=== PATIENT | female | born 1995 | race Hispanic/Latino ===

== ENCOUNTER 2023-04-26 07:50 | Emergency (ER) | payer BC, SELFPAY ==
[2023-04-26 08:40] LABS: #Monocytes 1.1 10x3/uL (0.0-1.1); #Neutrophils 10.6 10x3/uL (1.5-8.4); %Basophils 0.2 % (0.0-2.0); %Eosinophils 0.3 % (0.0-6.0); %Lymphocytes 2.2 % (18.0-47.0); %Monocytes 8.9 % (0.0-10.0); %Neutrophils 87.2 % (40.0-75.0); Hematocrit 33.4 % (34.9-44.5); Hemoglobin 11.2 g/dL (12.0-15.5); Mean Corpuscular HGB CONC 33.5 g/dL (32.0-36.0); Mean Corpuscular Hemoglobin 27.3 pg (27.0-33.0); Mean Corpuscular Volume 81.3 fl (81.6-98.3); Mean Platelet Volume 10.5 fl (7.4-10.4); Platelet Count 215 10x3/uL (150-450); RBC Distribution Width 13.9 % (11.5-14.5); Red Blood Cell (RBC) Count 4.11 10x6/uL (3.90-5.03); White Blood Cell (WBC) Count 12.1 10x3/uL (3.5-10.5)
[2023-04-26] MEDS ORDERED: Acetaminophen 325 MG TAB ONE (08:45)
[2023-04-26 09:02] LABS: ALT (SGPT) 55 U/L (8-55); AST (SGOT) 50 U/L (5-34); Albumin 3.4 g/dL (3.5-5.0); Alkaline Phosphatase 62 U/L (40-110); Anion Gap 13 mmol/L (10-20); BUN (Urea Nitrogen) 4 mg/dL (7.0-18.7); Bilirubin, Total 0.5 mg/dL (0.2-1.2); Calc. Creatinine Clearance 0 mL/min (70-130); Calcium 8.7 mg/dL (7.8-10.44); Carbon Dioxide 21 mmol/L (22-29); Chloride 104 mmol/L (98-107); Estimated GFR 125; Globulin 3.1 g/dL (2.4-3.5); Glucose 108 mg/dL (70-105); Magnesium 1.4 mg/dL (1.6-2.6); Potassium 3.9 mmol/L (3.5-5.1); Protein, Total 6.5 g/dL (6.0-8.3); Sodium 134 mmol/L (136-145)
[2023-04-26] MEDS ORDERED: Magnesium Oxide 400 MG TAB PO SCH (10:00)
[2023-04-26 11:08] LABS: SARS-CoV-2 NAA Rapid Test DETECTED (NotDetected)
[2023-04-26 11:15] LABS: Bilirubin Neg (Negative); Blood, Urine 10 (Negative); Glucose, Urine (Dipstick) Normal (Negative); Ketone, Urine 50 mg/dL (Negative); Leukocyte 500 (Negative); Nitrite Negative (Negative); Protein, Urine (Dipstick) 30 mg/dl (Neg-Trace); Urobilinogen Normal mg/dL (Less than 2)
[2023-04-26 11:23] LABS: Clarity Slightly Cloudy (Clear)
[2023-04-26 11:30] LABS: CAUTI Indications for Culture Pelvic or flank pain; Trichomonas/HPF 2+ HPF (None Seen); WBC/HPF Greater than 50 HPF (0-3)
[2023-04-26 11:31] LABS: Bacteria/HPF 1+ HPF (None Seen); RBC/HPF 0-3 HPF (0-3)
[2023-04-26 11:32] LABS: Urine Culture Reflex Yes Yes
== END 2023-04-26 11:25 | disposition home or self-care (01) ==
LOC: CSHERS 07:50
DX: O98.512 Other viral diseases complicating pregnancy, second trimester (principal); U07.1 COVID-19; O16.2 Unspecified maternal hypertension, second trimester; Z3A.23 23 weeks gestation of pregnancy
CPT/HCPCS: 80053; 81001; 83735; 85025; 87086; 96360; 96361

== ENCOUNTER 2023-07-20 10:08 | Inpatient (IN) | payer MEDICAID, OTHER ==
[2023-07-20] MEDS ORDERED: Bicitra 30 ML UDCUP PO PRN (10:43)
[2023-07-20] MEDS ORDERED: Ondansetron PF 4 MG/2 ML Vial IVP PRN ×4 (10:43→15:13)
[2023-07-20] MEDS ORDERED: Promethazine HCl 25 MG/ML VIAL IM PRN ×2 (10:43→10:52)
[2023-07-20] MEDS ORDERED: hydrALAZINE 20 MG/ML VIAL SLOW IVP PRN ×2 (10:43→15:13)
[2023-07-20] MEDS ORDERED: Diphenoxylate HCl/Atropine Tablet PO PRN (10:43)
[2023-07-20] MEDS ORDERED: Misoprostol 200 MCG TAB PR PRN (10:43)
[2023-07-20] MEDS ORDERED: Famotidine/PF 20 mg/2ml Vial SLOW IVP PRN (10:43)
[2023-07-20] MEDS ORDERED: Carboprost 250 MCG/ML AMP IM PRN (10:43)
[2023-07-20] MEDS ORDERED: Tranexamic Acid 1,000 MG/10 ML VIAL IVP PRN (10:43)
[2023-07-20] MEDS ORDERED: Lactated Ringer's 1,000 ML IV SCH (10:45)
[2023-07-20] MEDS ORDERED: Oxytocin 30 units/NS 500 ML 500 ML IV SCH (10:45)
[2023-07-20] MEDS ORDERED: CEFAZOLIN 3 GM in Sodium Chloride 0.9% 100 ML IVPB SCH (10:45)
[2023-07-20] MEDS ORDERED: Moisturizing Cream (Eucerin) 113 GM JAR TOP PRN (10:52)
[2023-07-20] MEDS ORDERED: Meperidine HCl/PF 25 MG/ML VIAL SLOW IVP PRN (10:52)
[2023-07-20] MEDS ORDERED: fentaNYL 50 mcg/mL 1 mL Vial SLOW IVP PRN (10:52)
[2023-07-20] MEDS ORDERED: diphenhydrAMINE 50 MG/ML VIAL IVP PRN (10:52)
[2023-07-20] MEDS ORDERED: Naloxone HCl 0.4 mg/ml Vial IVP PRN ×2 (10:52)
[2023-07-20] MEDS ORDERED: Naloxone HCl 0.4 mg/ml Vial IV PRN (10:52)
[2023-07-20] MEDS ORDERED: Promethazine HCl 25 MG SUPP PR PRN (10:52)
[2023-07-20] MEDS ORDERED: Communication Order-Pharmacy FS SCH (11:00)
[2023-07-20 11:05] VITALS: BMI 49.3
[2023-07-20] MEDS ORDERED: Morphine PF 10 MG/10 ML VIAL ONE (11:43)
[2023-07-20] MEDS ORDERED: ePHEDrine Sulfate 50 MG/10 ML VIAL ONE (11:43)
[2023-07-20] MEDS ORDERED: Phenylephrine 40 MG/NS 250 ML 500 ML ONE (11:44)
[2023-07-20] MEDS ORDERED: Ondansetron PF 4 MG/2 ML Vial ONE (11:44)
[2023-07-20] MEDS ORDERED: Ketorolac Tromethamine 30 MG/ML VIAL ONE (11:44)
[2023-07-20 12:06] LABS: Hematocrit 35.5 % (34.9-44.5); Mean Corpuscular HGB CONC 33.8 g/dL (32.0-36.0); Mean Corpuscular Hemoglobin 26.9 pg (27.0-33.0); Mean Corpuscular Volume 79.6 fl (81.6-98.3); Mean Platelet Volume 11.3 fl (7.4-10.4); Platelet Count 269 10x3/uL (150-450); RBC Distribution Width 14.3 % (11.5-14.5); Red Blood Cell (RBC) Count 4.46 10x6/uL (3.90-5.03)
[2023-07-20 12:21] LABS: ALT (SGPT) 10 U/L (8-55); AST (SGOT) 18 U/L (5-34); Albumin 3.2 g/dL (3.5-5.0); Alkaline Phosphatase 122 U/L (40-110); Anion Gap 13 mmol/L (10-20); BUN (Urea Nitrogen) 12 mg/dL (7.0-18.7); Bilirubin, Total 0.4 mg/dL (0.2-1.2); Calc. Creatinine Clearance 310 mL/min (70-130); Calcium 8.6 mg/dL (7.8-10.44); Carbon Dioxide 18 mmol/L (22-29); Chloride 110 mmol/L (98-107); Estimated GFR 126; Globulin 2.7 g/dL (2.4-3.5); Glucose 86 mg/dL (70-105); Potassium 4.1 mmol/L (3.5-5.1); Protein, Total 5.9 g/dL (6.0-8.3); Sodium 137 mmol/L (136-145)
[2023-07-20 12:40] LABS: HBSAg Index 0.21 S/CO (0-0.99); Hep B Surf Ag - L&D Non-Reactive S/CO (NonReactive)
[2023-07-20 12:41] LABS: Syphilis Antibody Nonreactive (Nonreactive); Syphilis Antibody Index 0.06 S/CO (<1.00 Non-Reactive)
[2023-07-20 13:04] LABS: Creatinine, Urine 59.92 mg/dL (47-110); Protein, Urine Random Quant Less than 10 mg/dL (1-14)
[2023-07-20] MEDS ORDERED: Bisacodyl 10 MG SUPP PR PRN (15:13)
[2023-07-20] MEDS ORDERED: Boostrix 0.5 ML (Tdap) VIAL (>/=7 yrs of age) IM ONE (15:13)
[2023-07-20] MEDS ORDERED: Lanolin Ointment 7 GM TUBE TOP PRN (15:13)
[2023-07-20] MEDS ORDERED: Simethicone Chewable 80 MG TAB PO PRN (15:13)
[2023-07-20] MEDS ORDERED: diphenhydrAMINE 25 MG CAP PO PRN (15:13)
[2023-07-20] MEDS: Promethazine HCl 25 MG/ML VIAL IM PRN ×2 (15:25→20:17)
[2023-07-20] MEDS ORDERED: NIFEdipine XL 30 MG ER.TAB PO SCH (15:30)
[2023-07-20] MEDS ORDERED: Ketorolac Tromethamine 30 MG/ML VIAL IVP PRN (19:30)
[2023-07-20] MEDS ORDERED: Ketorolac Tromethamine 30 MG/ML VIAL IVP SCH (19:30)
[2023-07-20] MEDS: Ferrous Sulfate 325 MG TAB PO SCH (19:54)
[2023-07-20] MEDS: Docusate 100 MG CAP PO SCH (19:55)
[2023-07-20] MEDS: Ketorolac Tromethamine 30 MG/ML VIAL IVP SCH (20:16)
[2023-07-20] MEDS: cloNIDine 0.1 MG TAB PO PRN (21:38)
[2023-07-20] MEDS ORDERED: Meperidine HCl/PF 25 MG/ML VIAL IM PRN (23:30)
[2023-07-20] MEDS ORDERED: HYDROcodone/Acetaminophen 5/325 mg Tablet PO PRN ×2 (23:30)
[2023-07-21] MEDS: cloNIDine 0.1 MG TAB PO PRN ×2 (02:18→18:04)
[2023-07-21] MEDS: Ketorolac Tromethamine 30 MG/ML VIAL IVP SCH ×2 (02:18→09:00)
[2023-07-21 04:17] LABS: Hematocrit 27.8 % (34.9-44.5); Hemoglobin 9.1 g/dL (12.0-15.5); Mean Corpuscular HGB CONC 32.7 g/dL (32.0-36.0); Mean Corpuscular Hemoglobin 26.1 pg (27.0-33.0); Mean Corpuscular Volume 79.7 fl (81.6-98.3); Platelet Count 187 10x3/uL (150-450); RBC Distribution Width 14.3 % (11.5-14.5); Red Blood Cell (RBC) Count 3.49 10x6/uL (3.90-5.03)
[2023-07-21] MEDS: Prenatal Vitamin 1 TAB PO SCH (09:00)
[2023-07-21] MEDS: Ferrous Sulfate 325 MG TAB PO SCH ×2 (09:00→21:50)
[2023-07-21] MEDS: Docusate 100 MG CAP PO SCH ×2 (09:00→21:49)
[2023-07-21] MEDS: NIFEdipine XL 30 MG ER.TAB PO SCH (09:01)
[2023-07-21] MEDS: Ibuprofen 800 MG TAB PO SCH ×2 (13:56→21:50)
[2023-07-22] MEDS: Ibuprofen 800 MG TAB PO SCH ×3 (05:20→21:45)
[2023-07-22] MEDS: Prenatal Vitamin 1 TAB PO SCH (07:39)
[2023-07-22] MEDS: Ferrous Sulfate 325 MG TAB PO SCH ×2 (07:39→21:45)
[2023-07-22] MEDS: Docusate 100 MG CAP PO SCH ×2 (07:39→21:45)
[2023-07-22] MEDS: NIFEdipine XL 30 MG ER.TAB PO SCH (07:54)
[2023-07-23] MEDS: cloNIDine 0.1 MG TAB PO PRN (01:32)
[2023-07-23] MEDS: Ibuprofen 800 MG TAB PO SCH (05:32)
[2023-07-23 11:29] VITALS: BP 144/78; TEMP 98.5
[2023-07-23] MEDS: Ferrous Sulfate 325 MG TAB PO SCH (16:40)
[2023-07-23] MEDS: Docusate 100 MG CAP PO SCH (16:40)
[2023-07-23] MEDS: NIFEdipine XL 30 MG ER.TAB PO SCH (16:41)
[2023-07-23] MEDS: Prenatal Vitamin 1 TAB PO SCH (16:42)
== END 2023-07-23 15:09 | disposition home or self-care (01) | DRG 788 ==
LOC: CSHLD 10:08 → CSHPP 14:53
PROVIDERS: ADMIT Family Medicine; ATTEND Family Medicine
PROC: 10D00Z1 Extraction of Products of Conception, Low, Open Approach (ICD-10-PCS; principal; 2023-07-20)
DX: O32.1XX0 Maternal care for breech presentation, not applicable or unspecified (principal); Z3A.38 38 weeks gestation of pregnancy; Z37.0 Single live birth; O13.4 Gestational [pregnancy-induced] hypertension without significant proteinuria, complicating childbirth; O99.214 Obesity complicating childbirth; E66.01 Morbid (severe) obesity due to excess calories; O99.824 Streptococcus B carrier state complicating childbirth
CPT/HCPCS: 51702; 80053; 82570; 84156; 85027; 86780; 86850; 86900; 86901; 87340; J1885; J2274; J2405; J2550; J3490; S0028

== ENCOUNTER 2024-09-08 21:05 | Inpatient (IN) | payer BC, OTHER ==
[~2024-09-08 21:05] MED LIST: Iopamidol 300 61% 100 ML VIAL FS ONE
[2024-09-08 22:22] LABS: #Basophils 0.03 10x3/uL (0.0-0.2); #Eosinophils 0.05 10x3/uL (0.0-0.5); #Monocytes 0.66 10x3/uL (0.0-1.1); #Neutrophils 9.88 10x3/uL (1.5-8.4); %Basophils 0.2 % (0.0-2.0); %Eosinophils 0.4 % (0.0-6.0); %Lymphocytes 19.2 % (18.0-47.0); Hematocrit 39.3 % (34.9-44.5); Hemoglobin 13.2 g/dL (12.0-15.5); Mean Corpuscular HGB CONC 33.6 g/dL (32.0-36.0); Mean Corpuscular Hemoglobin 26.6 pg (27.0-33.0); Mean Corpuscular Volume 79.2 fL (81.6-98.3); Mean Platelet Volume 9.8 fL (7.4-10.4); Platelet Count 267 10x3/uL (150-450); RBC Distribution Width 13.5 % (11.5-14.5); Red Blood Cell (RBC) Count 4.96 10x6/uL (3.90-5.03); White Blood Cell (WBC) Count 13.17 10x3/uL (3.5-10.5)
[2024-09-08 22:37] LABS: Bilirubin Neg (Negative); Blood, Urine Negative (Negative); Clarity Clear (Clear); Glucose, Urine (Dipstick) Normal (Negative); Ketone, Urine Negative (Negative); Leukocyte Negative (Negative); Nitrite Negative (Negative); Pregnancy Test - Urine (BHCG) Negative (Negative); Pregu Control Background? CLEAR/WHITE (CLR/WHITE); Pregu Control Bar Appear? YES (CONTROL BAR); Protein, Urine (Dipstick) 15 mg/dl (Neg-Trace); Specific Gravity 1.015 (1.002-1.036); Specific Gravity, Urine 1.015 (1.005-1.030); pH, Urine 6.5 (5.0-9.0)
[2024-09-08 22:44] LABS: ALT (SGPT) 18 U/L (Less than 34); AST (SGOT) 19 U/L (11-34); Albumin 4.2 g/dL (3.1-4.5); Alkaline Phosphatase 75 U/L (40-110); Anion Gap 15 mmol/L (10-20); BUN (Urea Nitrogen) 14 mg/dL (7.0-18.7); Bilirubin, Total 0.7 mg/dL (0.3-1.2); Calc. Creatinine Clearance 0 mL/min (70-130); Calcium 9.3 mg/dL (7.8-10.44); Carbon Dioxide 23 mmol/L (22-29); Chloride 105 mmol/L (98-107); Estimated GFR 113; Globulin 3.8 g/dL (2.4-3.5); Glucose 112 mg/dL (70-105); Lipase 50 U/L (8-78); Magnesium 1.9 mg/dL (1.6-2.6); Potassium 3.7 mmol/L (3.5-5.1); Sodium 139 mmol/L (136-145)
[2024-09-08 22:58] LABS: Bacteria/HPF 1+ HPF (None Seen); CAUTI Indications for Culture Pelvic or flank pain; RBC/HPF 0-3 HPF (0-3); Squamous Epithelial 0-3 HPF (0-3)
[2024-09-08 23:00] LABS: Mucous/LPF 1+ LPF (<2+); Urine Culture Reflex No No
[2024-09-08 23:30] LABS: BHCG - Serum Negative (NEGATIVE); Pregs Control Background? CLEAR/WHITE (CLR/WHITE); Pregs Control Bar Appear? YES (CONTROL BAR)
[2024-09-08] MEDS ORDERED: Sodium Chloride 0.9% 100 ML ONE (23:55)
[2024-09-08] MEDS ORDERED: Piperacillin/Tazobactam 4.5 GM VIAL ONE (23:55)
[2024-09-09 01:16] VITALS: BMI 46.3
[2024-09-09] MEDS ORDERED: Ondansetron PF 4 MG/2 ML Vial IVP PRN (02:10)
[2024-09-09] MEDS ORDERED: Acetaminophen 325 MG TAB PO PRN (02:11)
[2024-09-09] MEDS: Piperacillin/Tazobactam 3.375 GM in Sodium Chloride 0.9% 100 ML IVPB SCH (04:28)
[2024-09-09] MEDS: FLU (Fluarix Triv) TS24-25(6MOS UP)/PF 45 MCG/0.5 ML Syringe IM ONE (08:59)
[2024-09-09] MEDS ORDERED: Bupivacaine/Epinephrine 0.25% 30 ML VIAL ONE (10:05)
[2024-09-09] MEDS ORDERED: Ondansetron PF 4 MG/2 ML Vial ONE (10:10)
[2024-09-09] MEDS ORDERED: Rocuronium Bromide 10 MG/ML (10ML VIAL) ONE (10:10)
[2024-09-09] MEDS ORDERED: fentaNYL 50 mcg/mL 1 mL Vial ONE ×2 (10:10→12:10)
[2024-09-09] MEDS ORDERED: SUCCINYLCHOLINE/SOD CL,ISO/PF 200 MG/10 ML SYRINGE FS ONE (10:10)
[2024-09-09] MEDS ORDERED: PROPOFOL 20 ML ONE (10:10)
[2024-09-09] MEDS ORDERED: Dexamethasone 20 MG/5 ML VIAL ONE (10:10)
[2024-09-09] MEDS ORDERED: Glycopyrrolate 0.2 MG/ML 5 ML SYRINGE ONE (11:16)
[2024-09-09] MEDS ORDERED: Neostigmine 1 MG/ML in 5 ML SYRINGE ONE (11:17)
[2024-09-09] MEDS ORDERED: Ketorolac Tromethamine 30 MG (1 mL) VIAL ONE (11:22)
[2024-09-09] MEDS ORDERED: Acetaminophen/Codeine 30-300mg Tablet PO PRN (11:47)
[2024-09-09 16:14] VITALS: BP 156/78; TEMP 98.8
== END 2024-09-09 16:15 | disposition home or self-care (01) | DRG 398 ==
LOC: CSHERS 21:05 → CSHTELE 09-09 01:04 → OBSVTOIN 09-09 01:04
PROVIDERS: ADMIT Student in an Organized Health Care Education/Training Program; ATTEND Student in an Organized Health Care Education/Training Program
PROC: 0DTJ4ZZ Resection of Appendix, Percutaneous Endoscopic Approach (ICD-10-PCS; principal; 2024-09-09)
DX: K35.80 Unspecified acute appendicitis (principal); Z68.42 Body mass index [BMI] 45.0-49.9, adult; E66.9 Obesity, unspecified; Z79.899 Other long term (current) drug therapy; Z98.890 Other specified postprocedural states; F17.290 Nicotine dependence, other tobacco product, uncomplicated
CPT/HCPCS: 36415; 74177; 80053; 81001; 81025; 83690; 83735; 84703; 85025; 88304; 96365; A4649; C1889; J1100; J1885; J2405; J2543; J2704; J3010; Q9967